=== PATIENT | male | born 1960 | race Caucasian/White ===

== ENCOUNTER 2016-11-20 10:51 | Outpatient (CLI) | payer MEDICAID ==
[2016-11-20] MEDS ORDERED: GADOBUTROL 10 MMOL/10 ML VIAL IVP ONE (12:03)
== END 2016-11-20 10:52 | disposition home or self-care (01) ==
DX: M51.26 Other intervertebral disc displacement, lumbar region (principal); M51.16 Intervertebral disc disorders with radiculopathy, lumbar region; M51.37 Other intervertebral disc degeneration, lumbosacral region
CPT/HCPCS: 72158; A9585

== ENCOUNTER 2018-03-16 16:26 | Outpatient (CLI) | payer MEDICAID ==
--- NOTE | 2018-03-17 22:03 | MRI Report ---
Procedure Date: 03/16/2018 Accession Number: [id number] / [id number] Procedure: MRI - Cervical Spine W/O CPT Code: FULL RESULT: EXAM: MRI CERVICAL SPINE WITHOUT CONTRAST. EXAM DATE: 03/16/2018 05:33 PM. CLINICAL HISTORY: Cervical radiculopathy. COMPARISONS: MRI of the cervical spine without contrast 11/22/2011. TECHNIQUE: Multiplanar, multisequence T1-weighted and fluid-sensitive sequences of the cervical spine without contrast. Other: None. FINDINGS: There is a mild degree of straightening of the normal cervical lordosis. There is desiccation of the disk spaces throughout the cervical spine. There is a mild decrease in the height of the disk at C5-C6 and C6-C7. There are normal signal intensities demonstrated throughout the cervical spinal cord. The craniocervical junction is normal. There is Modic type II endplate degenerative change versus a hemangioma within the superior endplate of C5. There is a Schmorl's node demonstrated in the inferior endplate of C6. C2-C3: There is no significant disk bulge, central or foraminal stenosis. The facets are normal. C3-C4: There is a small disk osteophyte complex eccentric to the left with annular tear producing mild central canal stenosis. The facets are normal. There is no significant foraminal stenosis. C4-C5: There is a small disk osteophyte complex with superimposed central extrusion of the disk producing a mild central canal stenosis. There is no significant foraminal stenosis. The facets are normal. C5-C6: There is a small disk osteophyte complex producing a mild central canal stenosis. The uncovertebral hypertrophy produces mild left and mild to moderate right foraminal stenosis. The facets are normal. There is questionable slight progression of the right foraminal stenosis. There has been slight progression of the disk bulge and central canal stenosis. C6-C7: There is a broad-based disk osteophyte complex eccentric to the left. The left-sided uncovertebral hypertrophy produces severe left neural foraminal narrowing. Recommend correlation for left C7 radiculopathy. There is mild to moderate narrowing of the right neural foramen. There is minimal right facet arthropathy. There is mild central canal stenosis. C7-T1: There is no significant disk bulge, central or foraminal stenosis. The facets are normal. IMPRESSION: 1. There is a broad-based disk osteophyte complex eccentric to the left of C6-C7. There is unchanged severe left neural foraminal narrowing. Recommend correlation for left C7 radiculopathy. There is mild central canal stenosis. 2. There is questionable slight progression of the right foraminal stenosis and disk bulge at C5-C6. There is a small disk osteophyte complex producing a mild central canal stenosis. There is mild to moderate narrowing of the right neural foramen. 3. There is an unchanged small disk osteophyte complex at C4-C5 with superimposed central extrusion of the disk producing mild central canal stenosis. 4. There is an unchanged small disk osteophyte complex eccentric to the left at C3-C4 producing mild central canal stenosis.
== END 2018-03-16 16:27 | disposition home or self-care (01) ==
LOC: DI 16:26
PROVIDERS: ATTEND Family Medicine
DX: M54.12 Radiculopathy, cervical region (principal)
CPT/HCPCS: 72141

== ENCOUNTER 2019-01-28 12:15 | Outpatient (CLI) | payer MEDICAID ==
--- NOTE | 2019-01-28 15:25 | XRAY Report ---
Reason: CHEST PAIN,NON-CARDIAC Procedure Date: 01/28/2019 Accession Number: [id number] / [id number] Procedure: WCP - Ribs w/PA Chest RT CPT Code: FULL RESULT: EXAM: RIGHT RIB RADIOGRAPHY EXAM DATE: 01/28/2019 12:26 PM. CLINICAL HISTORY: Fall onto the right lateral ribs 4 days ago. COMPARISON: None. TECHNIQUE: 1 view of the chest and 2 views of the ribs. FINDINGS: Bones: Normal. No fracture or bone lesion. Lungs: No focal opacities. No pneumothorax. No pleural effusions. Mediastinum: Heart and mediastinal contours are unremarkable. Other: None. IMPRESSION: No definite displaced rib fracture is identified. RADIA
== END 2019-01-28 12:16 | disposition home or self-care (01) ==
LOC: DI.WCP 12:15
PROVIDERS: ATTEND Family Medicine
DX: R07.89 Other chest pain (principal)

== ENCOUNTER 2020-10-08 07:53 | Outpatient (CLI) | payer MEDICAID ==
[2020-10-08 08:20] LABS: BASOPHILS # (AUTO) 0.1 10^3/uL (0.0-0.1); BASOPHILS % (AUTO) 0.7 %; EOSINOPHILS # (AUTO) 0.3 10^3/uL (0.0-0.7); EOSINOPHILS % (AUTO) 3.8 %; HCT - HEMATOCRIT 49.4 % (42.0-52.0); HGB - HEMOGLOBIN 16.8 g/dL (14.0-18.0); LYMPHOCYTES # (AUTO) 1.7 10^3/uL (1.5-3.5); LYMPHOCYTES % (AUTO) 24.2 %; MEAN CORPUSCULAR HEMOGLOBIN 28.8 pg (27.0-31.0); MEAN CORPUSCULAR VOLUME 84.6 fL (80.0-94.0); MEAN PLATELET VOLUME 9.2 fL (7.4-11.4); MONOCYTES # (AUTO) 0.5 10^3/uL (0.0-1.0); MONOCYTES % (AUTO) 7.3 %; NEUTROPHILS # (AUTO) 4.5 10^3/uL (1.5-6.6); NEUTROPHILS % (AUTO) 63.4 %; PLT - PLATELET COUNT 230 10^3/uL (130-450); RED BLOOD COUNT 5.84 10^6/uL (4.70-6.10); RED CELL DISTRIBUTION WIDTH 12.7 % (12.0-15.0); WHITE BLOOD COUNT 7.1 x10^3/uL (4.8-10.8)
[2020-10-08 08:38] LABS: ALBUMIN 4.3 g/dL (3.2-5.5); ALBUMIN/GLOBULIN RATIO 1.4 (1.0-2.2); ALKALINE PHOSPHATASE 40 IU/L (42-121); ALT ALANINE AMINOTRANSFERASE 38 IU/L (10-60); AST ASPARTATE AMINOTRANSFERASE 31 IU/L (10-42); BILIRUBIN,TOTAL 0.7 mg/dL (0.2-1.0); BUN - BLOOD UREA NITROGEN 26 mg/dL (6-20); CALCIUM 9.7 mg/dL (8.5-10.3); CARBON DIOXIDE - CO2 25 mmol/L (21-32); CHLORIDE 103 mmol/L (101-111); CHOL/HDL RATIO 2.9 (<5.0); CHOLESTEROL 223 mg/dL; CREATININE 0.9 mg/dL (0.6-1.2); GFR - MDRD 86 (>89); GLUCOSE 115 mg/dL (70-100); HDL CHOLESTEROL 77 mg/dL; LDL CHOLESTEROL,CALCULATED 132 mg/dL; LDL/HDL RATIO 1.7 (<3.6); POTASSIUM 4.4 mmol/L (3.5-5.0); SODIUM 139 mmol/L (135-145); TOTAL PROTEIN 7.3 g/dL (6.7-8.2); TRIGLYCERIDES 72 mg/dL; VLDL CHOLESTEROL 14 mg/dL
--- NOTE | 2020-10-08 08:42 | XRAY Report ---
PROCEDURE: Pelvis 1 View INDICATIONS: LT HIP PAIN TECHNIQUE: 1 view(s) of the pelvis acquired. COMPARISON: None. FINDINGS: Bones: No fractures or dislocations. Subchondral sclerosis within the bilateral femoral heads is pre sent, left greater than right. Mild bilateral hip joint space narrowing and periarticular osteophyte formation. Periarticular osteophyte formation at the symphysis pubis. Soft tissues: Visualized bowel gas pattern is normal. No suspicious soft tissue calcifications. IMPRESSION: 1. Bilateral femoral head sclerosis, possibly indicating avascular necrosis. Pelvic MRI is recommende d for further assessment. 2. Bilateral hip osteoarthritis. 3. Osteitis pubis. Reviewed by: Perez Edwards MD on 10/08/2020 7:41 AM [facility] Approved by: Perez Edwards MD on 10/08/2020 7:41 AM [facility] Station ID: [id number]
== END 2020-10-08 07:54 | disposition home or self-care (01) ==
LOC: LAB 07:53
PROVIDERS: ATTEND Family Medicine
DX: I10 Essential (primary) hypertension (principal); R93.6 Abnormal findings on diagnostic imaging of limbs; M16.0 Bilateral primary osteoarthritis of hip; M86.8X8 Other osteomyelitis, other site
CPT/HCPCS: 36415; 80053; 80061; 83721; 85025

== ENCOUNTER 2021-07-03 08:00 | Outpatient (CLI) | payer MEDICAID ==
--- NOTE | 2021-07-03 09:02 | XRAY Report ---
PROCEDURE: Shoulder 3 View BILAT INDICATIONS: DEGENERATIVE JOINT DISEASE, BILATERAL SHOULDERS TECHNIQUE: 4 views of the shoulder were acquired. COMPARISON: X-ray shoulder 04/16/2018 FINDINGS: Bones: No fractures or dislocations. No suspicious bony lesions. Visualized ribs appear intact. M ild left and eozy-th-xacvctiv right acromioclavicular narrowing, unchanged. Minimal osteophyte is not ed at the distal left clavicle as well as distal right acromion, unchanged. No erosions. Glenohumeral joint spaces maintained. Soft tissues: No suspicious soft tissue calcifications. IMPRESSION: 1. Stable appearance of arthritic change as above. Reviewed by: Margo Sparrow MD on 07/03/2021 9:01 AM PST Approved by: Margo Sparrow MD on 07/03/2021 9:01 AM PST Station ID: [id number]
== END 2021-07-03 23:59 | disposition home or self-care (01) ==
LOC: DI.N 08:00
PROVIDERS: ATTEND Orthopaedic Surgery
DX: M19.011 Primary osteoarthritis, right shoulder (principal); M19.012 Primary osteoarthritis, left shoulder

== ENCOUNTER 2021-09-03 08:19 | Outpatient (CLI) | payer MEDICAID ==
--- NOTE | 2021-09-03 10:38 | XRAY Report ---
PROCEDURE: Cervical Spine Complete INDICATIONS: NECK PAIN RIGHT WRIST ARM NUMBNESS TECHNIQUE: 5 view(s) of the cervical spine were acquired. COMPARISON: None. FINDINGS: Bones: Multilevel disc space narrowing and endplate osteophyte formation within the mid and lower cer vical spine. Mild facet hypertrophy within the mid and lower cervical spine. Mild foraminal stenosis bilaterally at C5-C6 and C6-C7. No fractures or dislocations to the C7 level. The lateral masses of C1 appear intact on the odontoid view. No suspicious bony lesions. Soft tissues: No prevertebral soft tissue swelling. IMPRESSION: 1. Multilevel degenerative disc and facet disease. Given the patient's symptomatology, MRI is recomme nded for further assessment. 2. No acute fracture. No osseous lesion. If symptoms and/or clinical suspicion for pathology continue , further assessment with repeat plain films, or advanced imaging (e.g., CT, MRI, or bone scan) is re commended for further assessment.. Reviewed by: Perez Edwards MD on 09/03/2021 10:37 AM [facility] Approved by: Perez Edwards MD on 09/03/2021 10:37 AM [facility] Station ID: [id number]
== END 2021-09-03 08:20 | disposition home or self-care (01) ==
LOC: DI.WOS 08:19
PROVIDERS: ATTEND Orthopaedic Surgery
DX: G56.01 Carpal tunnel syndrome, right upper limb (principal); M47.812 Spondylosis without myelopathy or radiculopathy, cervical region; M50.30 Other cervical disc degeneration, unspecified cervical region; M48.02 Spinal stenosis, cervical region

== ENCOUNTER 2021-11-09 10:46 | Day surgery (SDC) | payer MEDICAID ==
[~2021-11-09 10:46] MED LIST: PROPOFOL 500 MG/50 ML 500 MG/50 ML VIAL ONE
[2021-11-09] MEDS ORDERED: LACTATED RINGERS 1,000 ML IV ONE ×2 (10:52→12:03)
--- NOTE | 2021-11-09 11:14 | ANESTHESIA ---
Pre-Anesthesia VS, & Labs - Diagnosis screening - Procedure colonoscopy Vital Signs: Temp Pulse Resp BP Pulse Ox 37.0 C 94 15 156/95 H 97 11/09/21 11:01 11/09/21 11:01 11/09/21 11:01 11/09/21 11:01 11/09/21 11:01 Height: 6 ft 5 in Weight (kg): 104.1 kg Body Mass Index: 27.2 BMI Classification: Overweight - NPO >8 hours - Lab Results Lab results reviewed: Yes Home Medications and Allergies Home Medications: Ambulatory Orders Duloxetine HCl [Cymbalta] 60 mg PO DAILY 11/08/21 Lisinopril/Hydrochlorothiazide [Zestoretic 20-25 mg Tablet] 1 each PO DAILY 11/08/21 Celecoxib [Celebrex] 200 mg PO DAILY 11/09/21 Duloxetine HCl [Cymbalta] 60 mg PO DAILY 11/08/21 Lisinopril/Hydrochlorothiazide [Zestoretic 20-25 mg Tablet] 1 each PO DAILY 11/08/21 Celecoxib [Celebrex] 200 mg PO DAILY 11/09/21 Allergies/Adverse Reactions: Allergies Allergy/AdvReac Type Severity Reaction Status Date / Time No Known Drug Allergies Allergy Verified 11/09/21 11:11 Anes History & Medical History - Anesthetic History Anesthesia Complications: reports: No previous complications Family history of Anesthesia Complications: Denies Family history of Malignant Hyperthermia: Denies - Medical History Cardiovascular: reports: Hypertension Pulmonary: reports: None Gastrointestinal: reports: None Urinary: reports: None Musculoskeletal: reports: Osteoarthritis, Chronic back pain Endocrine/Autoimmune: reports: None Skin: reports: None Smoking Status: Current every day smoker - Surgical History General: reports: Colonoscopy Orthopedic: reports: Carpal Tunnel surgery, Spine surgery Exam General: Alert, Oriented x3, Cooperative, No acute distress Dental: Poor dentition Mouth Openin Fingerbreadth Neck Mobility: Normal Mallampati classification: II Plan Anesthesia Type: General, Total IV Consent for Procedure(s) Verified and Reviewed: Yes Code Status: Attempt Resuscitation ASA classification: 2-Mild systemic disease Is this case an emergency?: No
[2021-11-09 12:44] VITALS: BP 147/85
--- NOTE | 2021-11-09 15:00 | ANESTHESIA POST OP EVALUATION ---
Anesthesia Post Eval - Post Anesthesia Eval Vitals: Last Vital Signs Temp 36.3 C L 11/09/21 12:43 Pulse 86 11/09/21 12:43 Resp 19 11/09/21 12:43 BP 147/85 H 11/09/21 12:43 Pulse Ox 98 11/09/21 12:43 CV Function Including HR & BP: Stable Pain Control: Satisfactory Nausea & Vomiting: Negative Mental Status: Baseline Respiratory Status: Airway Patent Hydration Status: Satisfactory Anesthesia Complications: None
== END 2021-11-09 10:47 | disposition home or self-care (01) ==
LOC: SDS 10:46
PROVIDERS: ATTEND Surgery
DX: Z12.11 Encounter for screening for malignant neoplasm of colon (principal); K57.30 Diverticulosis of large intestine without perforation or abscess without bleeding; I10 Essential (primary) hypertension; F17.200 Nicotine dependence, unspecified, uncomplicated; Z79.82 Long term (current) use of aspirin; Z79.899 Other long term (current) drug therapy
CPT/HCPCS: 45378; J7120

== ENCOUNTER 2022-01-23 07:00 | Day surgery (SDC) | payer MEDICAID ==
[~2022-01-23 07:00] MED LIST changes: +ACETAMINOPHEN 500 MG TABLET PO ONE; +CELECOXIB 100 MG CAPSULE PO ONE; -PROPOFOL 500 MG/50 ML 500 MG/50 ML VIAL ONE
[2022-01-23] MEDS ORDERED: LACTATED RINGERS 1,000 ML IV ONE (07:13)
--- NOTE | 2022-01-23 08:26 | ANESTHESIA ---
Pre-Anesthesia VS, & Labs - Diagnosis right carpal tunnel syndrome - Procedure right carpal tunnel release Vital Signs: Temp Pulse Resp BP Pulse Ox 36.5 C 88 16 153/97 H 96 01/23/22 07:14 01/23/22 07:14 01/23/22 07:14 01/23/22 07:14 01/23/22 07:14 Height: 6 ft 5 in Weight (kg): 109 kg Body Mass Index: 28.5 BMI Classification: Overweight - NPO >8 hours Home Medications and Allergies Home Medications: Ambulatory Orders Aspirin [Central High Aspirin] 81 mg PO DAILY 01/18/22 Roggen-3/Dha/Epa/Fish Oil [Fish Oil 1,000 mg Softgel] 1 each PO DAILY 01/18/22 Simvastatin [Zocor] 10 mg PO QPM 01/18/22 Duloxetine HCl [Cymbalta] 60 mg PO DAILY 11/08/21 Lisinopril/Hydrochlorothiazide [Zestoretic 20-25 mg Tablet] 1 each PO DAILY 11/08/21 Celecoxib [Celebrex] 200 mg PO DAILY 11/09/21 Aspirin [Central High Aspirin] 81 mg PO DAILY 01/18/22 Roggen-3/Dha/Epa/Fish Oil [Fish Oil 1,000 mg Softgel] 1 each PO DAILY 01/18/22 Simvastatin [Zocor] 10 mg PO QPM 01/18/22 Allergies/Adverse Reactions: Allergies Allergy/AdvReac Type Severity Reaction Status Date / Time No Known Drug Allergies Allergy Verified 01/23/22 07:24 Anes History & Medical History - Anesthetic History Anesthesia Complications: reports: No previous complications - Medical History Cardiovascular: reports: Hypertension, High cholesterol Pulmonary: reports: None Gastrointestinal: reports: None Urinary: reports: None Neuro: reports: None Musculoskeletal: reports: Osteoarthritis, Chronic back pain Endocrine/Autoimmune: reports: None Skin: reports: None Smoking Status: Current every day smoker (4 cigarettes per day, 30 years) Psychosocial: reports: No issues indicated History of Cancer?: No - Surgical History General: reports: Colonoscopy Orthopedic: reports: Carpal Tunnel surgery, Spine surgery Exam General: Alert, Oriented x3, Cooperative, No acute distress Dental: Poor dentition Mouth Openin Fingerbreadth Neck Mobility: Normal Mallampati classification: III Thyromental Distance: 4-6 cm Respiratory: Lungs clear, Normal breath sounds, No respiratory distress, No accessory muscle use Cardiovascular: Regular rate, Normal S1, Normal S2, No murmurs Mental/Cognitive Status: Alert/Oriented X3, Normal for patient Plan Anesthesia Type: General, MAC, Total IV Consent for Procedure(s) Verified and Reviewed: Yes Code Status: Attempt Resuscitation ASA classification: 2-Mild systemic disease Is this case an emergency?: No
[2022-01-23] MEDS ORDERED: MIDAZOLAM 2 MG/2 ML VIAL ONE (08:44)
[2022-01-23] MEDS ORDERED: fentaNYL 100 MCG/2 ML VIAL ONE ×2 (08:44→09:54)
[2022-01-23] MEDS ORDERED: PROPOFOL 200 MG/20 ML VIAL IVP ONE ×2 (08:44→09:49)
[2022-01-23] MEDS ORDERED: LIDOCAINE 2%-EPI 1:100000 20 ML MDV ONE (08:54)
[2022-01-23] MEDS ORDERED: BUPIVACAINE 0.25% PF 30 ML VIAL SUBQ ONE ×2 (09:24)
[2022-01-23] MEDS ORDERED: LIDOCAINE 2%-EPI 1:100000 20 ML MDV SUBQ ONE ×2 (09:29)
[2022-01-23] MEDS ORDERED: BUPIVACAINE 0.25% PF 10 ML VIAL ONE (09:36)
[2022-01-23] MEDS ORDERED: LACTATED RINGERS 600 ML IV ONE (10:08)
--- NOTE | 2022-01-23 10:10 | OPERATIVE REPORT ---
Operative Report - General Procedure Date: 01/23/22 Planned Procedure: Right carpal tunnel release Pre-Op Diagnosis: Right carpal tunnel syndrome Procedure Performed: Right carpal tunnel release, CPT 82926 Post Op Diagnosis: Same as preoperative diagnosis - Procedure Note Primary Surgeon: Sea Butler MD Secondary Surgeon: Nisha Green PAC Anesthesia Provider: Douglas Navarrete CRNA Anesthesia Technique: MAC Estimated Blood Loss (mL): 3 Indications: This is a 61-year-old gentleman with numbness median nerve distribution right hand over the past several months. He has tried wrist bracing and previous cortisone injection to right wrist. His exam to the right wrist is normal with exception of positive Tinel, Phalen and abnormal two-point discrimination to fingers right hand. Nerve conduction studies were abnormal that had been obtained preoperatively with both sensory and motor changes. He has had marked symptoms with numbness, hard to feel small objects and decreased dexterity Findings: There was subtle narrowing of median nerve beneath the transverse carpal ligament. There was a nonspecific tenosynovitis present. There are no other abnormalities of the carpal tunnel. Complications: None - Other Other Information/Narrative: The patient was brought to the operating room and placed in a supine position. The right arm was placed in a arm extension table. A pneumatic tourniquet had been applied to the proximal right arm over cast padding. The right upper extremity was prepped and draped in a sterile manner in the usual fashion. A timeout procedure was performed by the entire operating room team and all were in agreement. A 50:50 mixture of 4 cc of 2% lidocaine with epinephrine and .25% marcaine was injected about the right carpal tunnel using a volar approach just proximal to the wrist flexor crease, ulnar to the palmaris longus. An additional amount was injected subcutaneously. A longitudinal incision was made in line with the third webspace. The incision began just distal to the wrist flexor crease and extended for 2.5 cm. The subcutaneous tissue and palmar aponeurosis were divided in line with the incision. The transverse carpal ligament was identified proximally and was incised. A blunt obturator was inserted beneath the transverse carpal ligament. The transverse carpal ligament was then divided from proximal to distal under direct visualization. The transverse carpal ligament was divided proximally with blunt tip scissors to achieve a full release of the carpal tunnel. The median nerve was inspected. The wound was irrigated. The skin was closed with interrupted 4-0 nylon vertical mattress suture. A bulky hand dressing was applied to the right hand and wrist with mild compression. A pneumatic tourniquet was not utilized during the procedure but had been applied. Hemostasis was achieved with electrocautery. The patient tolerated procedure well.A physician customer assistant was utilized to help with prepping and draping, retraction and protection of vital structures, closure and dressing application.
[2022-01-23] MEDS ORDERED: KETOROLAC 30 MG/ML VIAL ONE (10:13)
--- NOTE | 2022-01-23 10:13 | ANESTHESIA POST OP EVALUATION ---
Anesthesia Post Eval - Post Anesthesia Eval Vitals: Last Vital Signs Temp 36.5 C 01/23/22 07:14 Pulse 88 01/23/22 07:14 Resp 16 01/23/22 07:14 BP 153/97 H 01/23/22 07:14 Pulse Ox 96 01/23/22 07:14 CV Function Including HR & BP: Stable Pain Control: Satisfactory Nausea & Vomiting: Negative Mental Status: Baseline Respiratory Status: Airway Patent Hydration Status: Satisfactory Anesthesia Complications: None
[2022-01-23] MEDS ORDERED: oxyCODONE 5 MG TABLET PO PRN (10:16)
[2022-01-23 10:25] VITALS: BP 150/87
== END 2022-01-23 07:01 | disposition home or self-care (01) ==
LOC: SDS 07:00
PROVIDERS: ATTEND Orthopaedic Surgery
DX: G56.01 Carpal tunnel syndrome, right upper limb (principal); F17.210 Nicotine dependence, cigarettes, uncomplicated
CPT/HCPCS: 64721; A9270; J7120

== ENCOUNTER 2022-06-17 11:06 | Outpatient (CLI) | payer MEDICAID ==
[2022-06-17 18:23] LABS: BASOPHILS # (AUTO) 0.1 10^3/uL (0.0-0.1); BASOPHILS % (AUTO) 0.7 %; EOSINOPHILS # (AUTO) 0.1 10^3/uL (0.0-0.7); EOSINOPHILS % (AUTO) 1.6 %; HCT - HEMATOCRIT 53.1 % (42.0-52.0); HGB - HEMOGLOBIN 17.5 g/dL (14.0-18.0); LYMPHOCYTES # (AUTO) 1.6 10^3/uL (1.5-3.5); MEAN CORPUSCULAR HEMOGLOBIN 27.9 pg (27.0-31.0); MEAN CORPUSCULAR VOLUME 84.7 fL (80.0-94.0); MEAN PLATELET VOLUME 9.9 fL (7.4-11.4); MONOCYTES # (AUTO) 0.7 10^3/uL (0.0-1.0); MONOCYTES % (AUTO) 8.4 %; NEUTROPHILS # (AUTO) 5.8 10^3/uL (1.5-6.6); NEUTROPHILS % (AUTO) 69.3 %; PLT - PLATELET COUNT 260 10^3/uL (130-450); RED BLOOD COUNT 6.27 10^6/uL (4.70-6.10); RED CELL DISTRIBUTION WIDTH 12.8 % (12.0-15.0); WHITE BLOOD COUNT 8.4 x10^3/uL (4.8-10.8)
[2022-06-17 18:37] LABS: ALBUMIN 4.5 g/dL (3.2-5.5); ALBUMIN/GLOBULIN RATIO 1.4 (1.0-2.2); ALKALINE PHOSPHATASE 59 IU/L (42-121); ALT ALANINE AMINOTRANSFERASE 57 IU/L (10-60); AST ASPARTATE AMINOTRANSFERASE 38 IU/L (10-42); BILIRUBIN,TOTAL 0.6 mg/dL (0.2-1.0); BUN - BLOOD UREA NITROGEN 26 mg/dL (6-20); CALCIUM 9.6 mg/dL (8.5-10.3); CARBON DIOXIDE - CO2 27 mmol/L (21-32); CHLORIDE 108 mmol/L (101-111); CHOL/HDL RATIO 2.8 (<5.0); CHOLESTEROL 250 mg/dL; CREATININE 0.8 mg/dL (0.6-1.2); GFR - MDRD 98 (>89); GLUCOSE 103 mg/dL (70-100); HDL CHOLESTEROL 90 mg/dL; LDL CHOLESTEROL,CALCULATED 130 mg/dL; LDL/HDL RATIO 1.4 (<3.6); POTASSIUM 4.1 mmol/L (3.5-5.0); SODIUM 138 mmol/L (135-145); TOTAL PROTEIN 7.8 g/dL (6.7-8.2); TRIGLYCERIDES 148 mg/dL; VLDL CHOLESTEROL 30 mg/dL
[2022-06-17 18:47] LABS: THYROID STIMULATING HORMONE 0.56 uIU/mL (0.34-5.60)
[2022-06-17 20:45] LABS: ESTIMATED AVERAGE GLUCOSE 120 mg/dL (70-100); HEMOGLOBIN A1c% 5.8 % (4.27-6.07)
== END 2022-06-17 11:07 | disposition home or self-care (01) ==
LOC: LAB.N 11:06
PROVIDERS: ATTEND Physician Assistant
DX: I10 Essential (primary) hypertension (principal); E78.5 Hyperlipidemia, unspecified; R73.01 Impaired fasting glucose; Z12.5 Encounter for screening for malignant neoplasm of prostate
CPT/HCPCS: 36415; 80053; 80061; 83036; 83721; 84153; 84443; 85025

== ENCOUNTER 2023-03-26 11:04 | Outpatient (CLI) | payer MEDICAID ==
--- NOTE | 2023-03-26 13:59 | XRAY Report ---
PROCEDURE: Lumbar Spine 2 View INDICATIONS: LUMBAR SPONDYLOSIS TECHNIQUE: 2 views of the lumbar spine were acquired. COMPARISON: None. FINDINGS: Bones: 5 [id number] vertebrae are present. There is normal bony alignment. No vertebral body compression fractures. No suspicious bony lesions. Moderate disc height loss at all levels. Facet a rthrosis L2-S1. Soft tissues: Overlying bowel gas pattern is normal. No suspicious soft tissue calcifications. IMPRESSION: Moderate, multilevel degenerative disc disease and diffuse facet arthrosis. Reviewed by: Ken Lee on 03/26/2023 1:58 PM PDT Approved by: Ken Lee on 03/26/2023 1:58 PM PDT Station ID: [id number]
== END 2023-03-26 11:05 | disposition home or self-care (01) ==
LOC: DI 11:04
PROVIDERS: ATTEND Acupuncturist
DX: M51.36 Other intervertebral disc degeneration, lumbar region (principal); M51.37 Other intervertebral disc degeneration, lumbosacral region; M47.816 Spondylosis without myelopathy or radiculopathy, lumbar region; M47.817 Spondylosis without myelopathy or radiculopathy, lumbosacral region

== ENCOUNTER 2023-08-02 06:58 | Outpatient (CLI) | payer MEDICAID ==
--- NOTE | 2023-08-05 08:25 | MRI Report ---
PROCEDURE: LUMBAR SPINE WO INDICATIONS: LUMBAR RADICULOPATHY TECHNIQUE: Noncontrast sagittal T1 spin echo and T2 fast echo, sagittal STIR, axial T1 and T2 fast spin echo thr ough the lumbar spine. In cases with scoliosis, additional coronal T2 fast spin echo may be performe d. COMPARISON: Lumbar spine plain films dated 03/26/2023, lumbar spine MRI with and without contrast jerilyn ed 11/20/2016. FINDINGS: Image quality: Excellent. Alignment and Curvature: Trace anterolisthesis of L2 on L3. Trace retrolisthesis of L3 on L4. Remote right hemilaminotomy at L3-L4 and L4-L5. Bone Marrow: Marrow is of normal overall signal. No acute vertebral body compression fractures. Spinal Cord: Conus medullaris terminates at the T12-L1 level. Visualized cord demonstrates normal s ignal and size. Paraspinous Soft Tissues: No paravertebral masses. T12-L1: Normal in appearance. L1-L2: There is disc bulge present. Previously, there was a left paracentral disc protrusion in ad dition to the disc bulge, which somewhat impingement on the left L2 nerve root in the left lateral re cess. This has resolved. There is no significant canal stenosis or foraminal stenosis. L2-L3: Definite interval progression. There is now at least moderate diffuse disc bulge. There has been some degree of interval disc height loss. There is facet and ligament hypertrophy as well as ep idural lipomatosis. There is moderate to severe canal stenosis. There are bilateral paracentral disc protrusions which result in severe bilateral lateral recess stenosis. No significant foraminal stenos is. L3-L4: Chronic disc height loss. Remote right hemilaminotomy. No canal stenosis or significant fora libby stenosis. L4-L5: Remote right hemilaminotomy. Postsurgical changes involving the disc. No significant canal s tenosis. Mild to moderate bilateral foraminal stenosis. L5-S1: Disc bulge. Facet hypertrophy. Epidural lipomatosis. Mild canal stenosis. Mild to moderate b ilateral foraminal stenosis. IMPRESSION: 1. Unchanged appearance of previous surgical levels, L3-L4 and L4-L5. No canal stenosis or significan t foraminal stenosis. 2. Definite interval progression at L2-L3. There is now moderate to severe central canal stenosis and severe bilateral lateral recess stenosis. 3. Mild canal stenosis at L5-S1. 4. Improvement at L1-L2, with resolution of left paracentral disc protrusion. No canal stenosis or fo raminal stenosis. Reviewed by: Bernardino Weinstein MD on 08/05/2023 8:23 AM PST Approved by: Bernardino Weinstein MD on 08/05/2023 8:23 AM PST Station ID: [id number]
== END 2023-08-02 06:59 | disposition home or self-care (01) ==
LOC: DI 06:58
PROVIDERS: ATTEND Acupuncturist
DX: M48.061 Spinal stenosis, lumbar region without neurogenic claudication (principal); M48.07 Spinal stenosis, lumbosacral region; M51.36 Other intervertebral disc degeneration, lumbar region

== ENCOUNTER 2023-10-30 07:33 | Outpatient (CLI) | payer MEDICAID ==
[2023-10-30 11:39] LABS: BASOPHILS % (AUTO) 0.5 %; EOSINOPHILS # (AUTO) 0.2 10^3/uL (0.0-0.7); EOSINOPHILS % (AUTO) 2.4 %; HCT - HEMATOCRIT 47.6 % (42.0-52.0); HGB - HEMOGLOBIN 15.9 g/dL (14.0-18.0); LYMPHOCYTES # (AUTO) 1.3 10^3/uL (1.5-3.5); LYMPHOCYTES % (AUTO) 19.6 %; MEAN CORPUSCULAR HEMOGLOBIN 28.2 pg (27.0-31.0); MEAN CORPUSCULAR HGB CONC 33.4 g/dL (32.0-36.0); MEAN CORPUSCULAR VOLUME 84.4 fL (80.0-94.0); MEAN PLATELET VOLUME 9.6 fL (7.4-11.4); MONOCYTES # (AUTO) 0.6 10^3/uL (0.0-1.0); MONOCYTES % (AUTO) 8.7 %; NEUTROPHILS # (AUTO) 4.6 10^3/uL (1.5-6.6); NEUTROPHILS % (AUTO) 68.5 %; PLT - PLATELET COUNT 233 10^3/uL (130-450); RED BLOOD COUNT 5.64 10^6/uL (4.70-6.10); RED CELL DISTRIBUTION WIDTH 12.9 % (12.0-15.0); WHITE BLOOD COUNT 6.6 x10^3/uL (4.8-10.8)
[2023-10-30 12:05] LABS: ESTIMATED AVERAGE GLUCOSE 108 mg/dL (70-100); HEMOGLOBIN A1c% 5.4 % (4.27-6.07)
[2023-10-30 12:06] LABS: ALBUMIN 4.7 g/dL (3.2-5.5); ALBUMIN/GLOBULIN RATIO 1.8 (1.0-2.2); ALKALINE PHOSPHATASE 49 IU/L (42-121); ALT ALANINE AMINOTRANSFERASE 58 IU/L (10-60); AST ASPARTATE AMINOTRANSFERASE 38 IU/L (10-42); BILIRUBIN,TOTAL 0.6 mg/dL (0.2-1.0); BUN - BLOOD UREA NITROGEN 21 mg/dL (6-20); CALCIUM 10.3 mg/dL (8.5-10.3); CARBON DIOXIDE - CO2 28 mmol/L (21-32); CHLORIDE 102 mmol/L (101-111); CHOL/HDL RATIO 2.7 (<5.0); CHOLESTEROL 224 mg/dL; CREATININE 0.8 mg/dL (0.6-1.3); GFR - MDRD 97 (>89); GLUCOSE 109 mg/dL (74-104); HDL CHOLESTEROL 84 mg/dL; LDL CHOLESTEROL,CALCULATED 118 mg/dL; LDL/HDL RATIO 1.4 (<3.6); POTASSIUM 4.1 mmol/L (3.5-4.5); SODIUM 137 mmol/L (135-145); TOTAL PROTEIN 7.3 g/dL (6.4-8.9); TRIGLYCERIDES 110 mg/dL (48-352); VLDL CHOLESTEROL 22 mg/dL
[2023-10-30 12:10] LABS: THYROID STIMULATING HORMONE 0.62 uIU/mL (0.34-5.60)
== END 2023-10-30 07:34 | disposition home or self-care (01) ==
LOC: LAB.N 07:33
PROVIDERS: ATTEND Physician Assistant
DX: I10 Essential (primary) hypertension (principal); R73.01 Impaired fasting glucose; R97.20 Elevated prostate specific antigen [PSA]; E78.5 Hyperlipidemia, unspecified
CPT/HCPCS: 36415; 80053; 80061; 83036; 83721; 84153; 84443; 85025

== ENCOUNTER 2023-11-16 08:21 | Outpatient (CLI) | payer MEDICAID ==
--- NOTE | 2023-11-16 14:07 | XRAY Report ---
PROCEDURE: Hips w/Pelvis 3-4V BL INDICATIONS: HIP PX TECHNIQUE: 3 view(s) of the pelvis acquired. COMPARISON: Pelvis radiograph on October 08, 2020. FINDINGS: Bones: No fractures or dislocations. Similar appearance of bilateral osseous sclerosis. No femoral h ead flattening. Mild bilateral femoroacetabular joint space narrowing and juxta-articular osteophytos is, similar to prior. Mild degenerative changes of the lower lumbar spine and pubic symphysis No susp icious bony lesions. Soft tissues: Visualized bowel gas pattern is normal. No suspicious soft tissue calcifications. IMPRESSION: 1.No acute bony abnormality. 2.Similar appearance of bilateral femoral head osseous sclerosis which may be seen in the setting of avascular necrosis. If there is high clinical suspicion, recommend a pelvic MRI for further evaluatio n. 3.Mild bilateral hip osteoarthritis, similar to prior. Reviewed by: Bean Aj MD on 11/16/2023 2:05 PM PDT Approved by: Bean Aj MD on 11/16/2023 2:05 PM PDT Station ID: [id number]
== END 2023-11-16 08:22 | disposition home or self-care (01) ==
LOC: DI 08:21
PROVIDERS: ATTEND Acupuncturist
DX: M16.0 Bilateral primary osteoarthritis of hip (principal); M89.8X8 Other specified disorders of bone, other site

== ENCOUNTER 2024-01-24 13:56 | Outpatient (CLI) | payer MEDICAID ==
--- NOTE | 2024-01-26 10:56 | MRI Report ---
PROCEDURE: Pelvis WO INDICATIONS: FEMUR HEAD NECROSIS TECHNIQUE: Noncontrast coronal T1 spin echo and STIR through the bony pelvis. Sagittal T2 FSE with fat saturati on, oblique axial PD FSE and T2 FSE with fat saturation through the symphysis pubis. COMPARISON: None. FINDINGS: Image quality: Excellent. Bones: Mild fibrovascular endplate change at L5-S1. The sacrum is intact. The marrow signal of bilate ral iliac bones are unremarkable. Bilateral hips are well aligned. Mild avascular necrosis of the right hip without articular surface c ollapse. No marrow edema of the right femoral head. Multifocal moderate avascular necrosis of the lef t femoral head, with mild articular surface collapse in the anterior superior femoral head, with asso ciated mild subchondral marrow edema. Trace right, small left hip effusion. Soft tissue findings: The right iliopsoas, adductor tendon are unremarkable. Low-grade tear of the ri ght hamstring tendon with mild reactive marrow edema in the right ischial tuberosity. The right glute al minimus and right gluteal medius are unremarkable. The left iliopsoas, adductor tendon are unremarkable. Mild tendinosis of the left hamstring tendon in sertion with mild reactive marrow edema of the left ischial tuberosity. No tear of the left hamstring tendon. The left gluteal minimus and the left gluteal medius tendon are unremarkable. Other soft tissue findings: The prostate is mildly enlarged. Moderate sigmoid colon diverticulosis. 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 3.Low-grade tear of the right hamstring tendon with mild reactive marrow edema in the right ischial t uberosity. 4.Mild tendinosis of the left hamstring tendon origin with mild reactive marrow edema of the left ini tial tuberosity. Reviewed by: Loly Jones MD on 01/26/2024 10:54 AM PDT Approved by: Loly Jones MD on 01/26/2024 10:54 AM PDT Station ID: [id number]
== END 2024-01-24 13:57 | disposition home or self-care (01) ==
LOC: DI 13:56
PROVIDERS: ATTEND Acupuncturist
DX: M87.9 Osteonecrosis, unspecified (principal); S76.811A Strain of other specified muscles, fascia and tendons at thigh level, right thigh, initial encounter; M67.962 Unspecified disorder of synovium and tendon, left lower leg